=== PATIENT | male | born 1960 | race Caucasian/White ===

== ENCOUNTER 2017-11-18 23:39 | Emergency (ER) | payer OTHER ==
[~2017-11-18] VITALS: Ht 152.4 cm; Wt 66.0 kg
[2017-11-19 00:11] VITALS: BP 132/68; PULSE 99; RESP 18; TEMP 98.2; O2SAT 95
--- NOTE | 2017-11-19 00:37 | PD ---
HPI Chief Complaint: Fall Time Seen by Provider: 00:21 Travel History International Travel<30 days: No Contact w/Intl Traveler<30days: No Traveled to known affect area: No History of Present Illness HPI 57-year-old male complains of laceration left side of the face and injury to left eye. Patient states that he fell and struck his left side of the face against a doorknob. Patient denies loss of consciousness. Patient denies any headache or neck pain. Patient denies any other injury. Patient states that he is not up-to-date with TD booster. Patient complained of aching pain around the left eye. Patient complained of blurry vision on the left eye. PFSH Past Medical History Hypertension: Yes Tetanus Vaccination: Unknown Influenza Vaccination: No Past Surgical History Surgical History: No Previous Surgery Social History Alcohol Use: Yes (Daily) Tobacco Use: Yes (1.5 PPD) Substance Use: No Allergies-Medications (Allergen,Severity, Reaction): Coded Allergies: No Known Drug Allergies (Verified Allergy, Unknown, 11/19/17) Reported Meds & Prescriptions Reported Meds & Active Scripts Active No Active Prescriptions or Reported Medications Review of Systems General / Constitutional: No: Fever Eyes: Positive: Blurred Vision, No: Visual changes HENT: No: Headaches Cardiovascular: No: Chest Pain or Discomfort Respiratory: No: Shortness of Breath Gastrointestinal: No: Abdominal Pain Genitourinary: No: Dysuria Musculoskeletal: No: Pain Skin: No Rash Neurologic: No: Weakness Psychiatric: No: Depression Endocrine: No: Polydipsia Hematologic/Lymphatic: No: Easy Bruising Physical Exam Narrative GENERAL: Well-nourished, well-developed patient. SKIN: Focused skin assessment warm/dry. HEAD: Normocephalic. EYES: Patient has hyphema on the anterior chamber left eye. Patient has diffuse redness on the left conjunctiva. Patient has periorbital ecchymosis swelling tenderness on the left eye. Patient has 2.5 cm laceration left cheek area. Patient has mild proptosis left eye. Extraocular muscle intact. NECK: Supple, trachea midline. No JVD or lymphadenopathy. CARDIOVASCULAR: Regular rate and rhythm without murmurs, gallops, or rubs. RESPIRATORY: Breath sounds equal bilaterally. No accessory muscle use. GASTROINTESTINAL: Abdomen soft, non-tender, nondistended. MUSCULOSKELETAL: No cyanosis, or edema. BACK: Nontender without obvious deformity. No CVA tenderness. Data Data Last Documented VS Vital Signs Date Time Temp Pulse Resp B/P (MAP) Pulse Ox O2 Delivery O2 Flow Rate FiO2 11/19/17 00:11 98.2 99 18 132/68 (89) [address] Facial Bones W/O Iv Cont (11/19/17 00:25) Amoxicillin (Trimox) (11/19/17 01:45) Ibuprofen (Motrin) (11/19/17 01:45) Tetanus/Diphtheria Tox Adult (Tetanus/Di (11/19/17 01:45) Ed Discharge Order (11/19/17 01:36) MDM Medical Decision Making Medical Screen Exam Complete: Yes Emergency Medical Condition: Yes Interpretation(s) Last Impressions Maxillofacial CT 11/19/17 0025 Signed Impressions: Service Date/Time: Sunday, November 19, 2017 00:51 - CONCLUSION: Depressed fractures of the anterior and lateral left maxillary sinus wall with moderate air-fluid level. Jasson Lozano MD Differential Diagnosis Differential diagnosis including hyphema, retro-orbital hematoma, orbital fracture, visual laceration. Narrative Course 57-year-old male with left eye injury and left-sided facial laceration. Amoxicillin 500 mg p.o. given. Eye Shield over the left eye. Td booster given. Diagnosis Primary Impression: Fracture of maxillary sinus Qualified Codes: S02.401A - Maxillary fracture, unspecified side, initial encounter for closed fracture Additional Impressions: Facial laceration Qualified Codes: S01.81XA - Laceration without foreign body of other part of head, initial encounter Hyphema, left eye Patient Instructions: General Instructions Additional Instructions: Take medications as directed. Follow-up with [facility] nurse and maxillofacial surgeon. Wound care daily. Keep the wound clean and dry for 7 days. Med/Other Pt SpecificInfo: Prescription(s) given Scripts Hydrocodone-Acetaminophen ([place]) 5 Mg-325 Mg Tab 1 TAB PO Q6H Y for PAIN, #20 TAB 0 Refills Prov: Ignacio Magaña MD 11/19/17 Amoxicillin (Amoxicillin) 500 Mg Cap 500 MG PO TID for Infection, #21 CAP 0 Refills Prov: Ignacio Magaña MD 11/19/17 Disposition: 01 DISCHARGE HOME Condition: Stable Ignacio Magaña MD Nov 19, 2017 00:37
--- NOTE | 2017-11-19 01:29 | RADRPT ---
EXAM DATE/TIME: 11/19/2017 00:51 [facility] COMPARISON: No previous studies available for comparison. INDICATIONS : Trauma, fall. RADIATION DOSE: 38.94 CTDIvol (mGy) MEDICAL HISTORY : Hypertension. SURGICAL HISTORY : None. ENCOUNTER: Initial ACUITY: 1 day PAIN SCORE: 7/10 LOCATION: facial TECHNIQUE: Volumetric scanning of the facial bones was performed. Using automated exposure control and adjustme nt of the mA and/or kV according to patient size, radiation dose was kept as low as reasonably achiev able to obtain optimal diagnostic quality images. DICOM format image data is available electronicall y for review and comparison. FINDINGS: There is an air-fluid level in left maxillary sinus with a depressed fracture of the anterior medial left maxillary sinus wall and an internally displaced fracture of the posterolateral sinus wall. The re is opacity in the mid and posterior left ethmoids. There is an asymmetric appearance to the zygom atic arch, with some deformity on the left side, but no acute fracture line seen most the nasal bones are intact. The infraorbital rim and lateral orbital wall are intact on the left side. The pterygo id plates and mandible are intact. The right maxilla is intact with some focal mucosal thickening an teriorly. There is soft tissue thickening in the left periorbital region but no soft tissue thickeni ng in the retroconal structures. CONCLUSION: Depressed fractures of the anterior and lateral left maxillary sinus wall with moderate air-fluid lev elRen Lozano MD on November 19, 2017 at 1:25 Board Certified Radiologist. This report was verified electronically.
--- NOTE | 2017-11-19 01:35 | PD ---
Physical Exam Date Seen by Provider: Nov 19, 2017 Time Seen by Provider: 01:32 Narrative 4 cm laceration to the left cheek. Data Data Last Documented VS Vital Signs Date Time Temp Pulse Resp B/P (MAP) Pulse Ox O2 Delivery O2 Flow Rate FiO2 11/19/17 00:11 98.2 99 18 132/68 (89) [address] Facial Bones W/O Iv Cont (11/19/17 00:25) MDM Medical Record Reviewed: Yes Supervised Visit with REGGIE: Yes Interpretation(s) Left anterior lateral maxillary sinus fracture Differential Diagnosis MDM: High Differential diagnoses: Fracture, sprain, strain, dislocation, contusion, neurovascular injury Narrative Course Patient's laceration is closed with Dermabond. Procedures Procedure Narrative LACERATION LOCATION: Left cheek LENGTH: 4 cm NUMBER OF STITCHES/VENANCIO: Not applicable REPAIR: The area of the laceration was prepped with Betadine and sterilely draped. The wound was copiously irrigated and explored without evidence of foreign body, tendon injury or neurovascular injury. The wound was closed using Dermabond. This was a simple single layer repair. A sterile dressing was applied. The patient was advised to keep the dressing clean and dry. Patient tolerated the procedure well. Patient Instructions: General Instructions Additional Instruction: Rest. Ice pack tonight. No nose blowing. Afrin nasal spray. Medications as directed. Dermabond instructions. Sunscreen and mederma for 6 months. Return to the ER for any problems. Med/Other Pt SpecificInfo: Prescription(s) given Scripts No Active Prescriptions or Reported Meds Disposition: 01 DISCHARGE HOME Condition: Stable Solomon Perez Nov 19, 2017 01:35
[2017-11-19] MEDS ORDERED: NORC5TAB PO (01:42)
[2017-11-19] MEDS ORDERED: AMOX500C PO (01:42)
[2017-11-19] MEDS ORDERED: AMOXICILLIN (TRIHYDRATE) 500 MG CAP PO ONE (01:45)
[2017-11-19] MEDS ORDERED: IBUPROFEN 600 MG TAB PO ONE (01:45)
[2017-11-19] MEDS ORDERED: TETANUS/DIPHTHERIA TOXOID ADULT 0.5 ML VIAL IM ONE (01:45)
== END 2017-11-19 02:11 | disposition home or self-care (01) ==
LOC: NEPD 23:39
DX: S01.412A Laceration without foreign body of left cheek and temporomandibular area, initial encounter (principal); S02.40DA Maxillary fracture, left side, initial encounter for closed fracture; S05.12XA Contusion of eyeball and orbital tissues, left eye, initial encounter; I10 Essential (primary) hypertension; F17.200 Nicotine dependence, unspecified, uncomplicated; Z23 Encounter for immunization; W01.198A Fall on same level from slipping, tripping and stumbling with subsequent striking against other object, initial encounter
CPT/HCPCS: 12013; 70486; 90471; 90714